=== PATIENT | female | born 1995 | race Caucasian/White ===

== ENCOUNTER 2019-11-25 13:03 | Emergency (ER) | payer OTHER ==
[~2019-11-25] VITALS: Ht 170.2 cm; Wt 94.3 kg
[2019-11-25] MEDS ORDERED: KETO10TA2 PO (18:11)
[2019-11-25] MEDS ORDERED: BENADRYL25 MG PO (18:11)
[2019-11-25] MEDS ORDERED: MECLIZINE HCL25 MG PO (18:11)
== END 2019-11-25 18:14 | disposition home or self-care (01) ==
LOC: ER 13:03
DX: G43.809 Other migraine, not intractable, without status migrainosus (principal); Z20.828 Contact with and (suspected) exposure to other viral communicable diseases